=== PATIENT | male | born 1980 | race Caucasian/White ===

== ENCOUNTER 2020-01-17 13:48 | Observation (INO) | payer BC ==
[~2020-01-17] VITALS: Ht 190.5 cm; Wt 122.9 kg
[2020-01-17 14:55] LABS: BASOPHILS 0.2 % (0-2); HEMATOCRIT 48.1 % (42.0-54.0); HEMOGLOBIN 15.4 g/dL (13.5-17.5); IMMATURE GRANULOCYTES 0.3 % (0-5); LYMPHOCYTES 12.4 % (15-50); MCH 25.1 pg (26.0-34.0); MCV 78.5 fL (80.0-100.0); MEAN PLATELET VOLUME 9.3 fL (7.4-10.4); NEUTROPHILS 79.1 % (40-80); PLATELET COUNT 331 10x3/uL (130-400); RBC 6.13 10x6/uL (4.20-6.10); RDW 16.7 % (11.5-14.5); WBC 12.7 10x3/uL (4.8-10.8)
[2020-01-17 15:04] LABS: ANION GAP 8.8 mmol/L (8-16); CALCIUM 8.3 mg/dL (8.5-10.1); CARBON DIOXIDE 28.5 mmol/L (21.0-32.0); CREATININE - SERUM 1.5 mg/dL (0.6-1.3); POTASSIUM - SERUM 4.3 mmol/L (3.5-5.1)
[2020-01-17 15:11] LABS: ALBUMIN 2.8 g/dL (3.4-5.0); BILIRUBIN - TOTAL 0.45 mg/dL (0.2-1.3); PROTEIN - SERUM 6.2 g/dL (6.4-8.2)
[2020-01-17 18:03] VITALS: BP 130/72
--- NOTE | 2020-01-17 18:17 | NUR ---
RESTING IN BED, NO DISTRESS NOTED, C/O PAIN WHEN UP ON LEG, CONT TO MONITOR PAIN, PROVIDED WITH SUPPER TRAY, SL IN PLACE
[2020-01-17 18:24] VITALS: BP 162/105
[2020-01-17 19:00] LABS: APTT 27.8 SECONDS (22.8-39.4)
--- NOTE | 2020-01-17 19:00 | NUR ---
PATIENT ALERT AND ORIENTED. ASSESSMENT PERFORMED. EDUCATION PROVIDED IN REGARDS TO ORDERS FOR BED REST. INSTRUCTED PATIENT ON ORDERS FOR URINE SAMPLE. DENIES FURTHER NEEDS AT THIS TIME. CALL LIGHT CLOSE. CPOC.
[2020-01-17 19:01] LABS: D-DIMER-QUANTITATIVE 0.45 ug/mLFEU (0.20-0.54)
[2020-01-17 19:08] LABS: INR 0.93 (0.85-1.17); PROTIME 12.4 SECONDS (11.6-15.0)
[2020-01-17 19:17] LABS: CKMB 3.2 U/L (0.0-3.6); CREATINE KINASE 700 UL (21-232)
[2020-01-17 19:19] LABS: TROPONIN-I < 0.017 ng/mL (0.000-0.060)
--- NOTE | 2020-01-17 19:49 | NUR ---
PATIENT REQUESTING PAIN MEDICINE. ADMINISTERED PRN MORPHINE PER ORDER FOR PAIN RATINIG 12/27 TO THE RIGHT LOWER LEG. DENIES FURTHER NEEDS CPOC.
[2020-01-17 23:03] VITALS: BP 133/75
--- NOTE | 2020-01-17 23:55 | NUR ---
REQUESTING PRN MORPHINE FOR PAIN RATING OF 7/10. ADMINISTERED PER ORDER. TOELRATED WELL. DENIES FURTHER NEEDS. CPOC.
[2020-01-18 00:33] LABS: BILIRUBIN NEGATIVE (NEGATIVE); KETONE NEGATIVE (NEGATIVE); NITRITE NEGATIVE (NEGATIVE); UROBILINOGEN NORMAL (NORMAL)
[2020-01-18 00:46] LABS: UDS - AMPHET NEGATIVE QUAL (NEGATIVE); UDS - BARB NEGATIVE QUAL (NEGATIVE); UDS - BENZO NEGATIVE QUAL (NEGATIVE); UDS - COCAINE NEGATIVE QUAL (NEGATIVE); UDS - OPIATE POSITIVE QUAL (NEGATIVE); UDS - PCP NEGATIVE QUAL (NEGATIVE); UDS - THC POSITIVE QUAL (NEGATIVE)
[2020-01-18 01:12] LABS: CKMB 2.4 U/L (0.0-3.6); TROPONIN-I 0.027 ng/mL (0.000-0.060)
[2020-01-18 01:15] LABS: CREATINE KINASE 430 UL (21-232)
[2020-01-18 02:35] VITALS: BP 153/91
[2020-01-18 07:13] VITALS: BP 162/94
[2020-01-18 07:41] LABS: BASOPHILS 0.2 % (0-2); EOSINOPHILS 1.7 % (0-7); HEMATOCRIT 48.9 % (42.0-54.0); HEMOGLOBIN 15.5 g/dL (13.5-17.5); IMMATURE GRANULOCYTES 0.2 % (0-5); LYMPHOCYTES 13.7 % (15-50); MCH 24.8 pg (26.0-34.0); MCHC 31.7 g/dL (31.0-37.0); MCV 78.1 fL (80.0-100.0); MEAN PLATELET VOLUME 9.5 fL (7.4-10.4); MONOCYTES 6.2 % (2-11); PLATELET COUNT 307 10x3/uL (130-400); RBC 6.26 10x6/uL (4.20-6.10); RDW 16.9 % (11.5-14.5)
[2020-01-18 07:56] LABS: ALBUMIN 2.7 g/dL (3.4-5.0); ALKALINE PHOSPHATASE 54 U/L (30-120); ALT (SGPT) 30 U/L (10-68); BILIRUBIN - TOTAL 0.54 mg/dL (0.2-1.3); CALC OSMOLALITY 273 mosm/kg (275-300); CALCIUM 8.1 mg/dL (8.5-10.1); CARBON DIOXIDE 27.1 mmol/L (21.0-32.0); CHLORIDE - SERUM 106 mmol/L (98-107); CKMB 2.1 U/L (0.0-3.6); CREATINE KINASE 334 UL (21-232); CREATININE - SERUM 1.4 mg/dL (0.6-1.3); GLUCOSE 85 mg/dL (74-106); POTASSIUM - SERUM 4.9 mmol/L (3.5-5.1); PROTEIN - SERUM 5.9 g/dL (6.4-8.2); SODIUM 138 mmol/L (136-145); UREA NITROGEN 9 mg/dL (7-18); eGFR NON AFRICAN AMERICAN 60 mL/min (90-120)
[2020-01-18 07:57] LABS: TROPONIN-I < 0.017 ng/mL (0.000-0.060)
[2020-01-18 09:31] VITALS: BP 152/93
--- NOTE | 2020-01-18 09:50 | NUR ---
PT RESTING IN BED. AWAKE ALERT AND ORIENTED. RESP EVEN AND UNLABORED. REPORTS PAIN TO RIGHT LOWER EXTREMITY, 7/10 AT THIS TIME. SALINE LOC TO RIGHT FOREARM, SITE WITHOUT REDNESS OR EDEMA, EASILY FLUSHED. REDNESS NOTED TO RIGHT LOWER EXTREMITY NOTED. PULSES PALPABLE TO EXTREMITY. DENIES FURTHER NEEDS AT THIS TIME. CL WITHIN REACH. ENCOURAGED TO CALL WITH NEEDS. CONTINUE POC
[2020-01-18] MEDS ORDERED: CLEOCIN HCL300 MG PO (11:52)
[2020-01-18] MEDS ORDERED: ELIQUIS5 MG PO (11:52)
[2020-01-18] MEDS ORDERED: FLORAJEN3 CAPS460 MG PO (11:52)
[2020-01-18 12:34] VITALS: BP 144/86
[2020-01-18 16:30] VITALS: Ht 190.5 cm; Wt 122.9 kg
[2020-01-18 18:10] LABS: THYROID STIMULATING HORMONE 2.09 uIU/mL (0.36-3.74)
[2020-01-19 08:13] LABS: PSA - % FREE 21.4 % (()); PSA - FREE 0.15 ng/mL; PSA - TOTAL 0.7 ng/mL (0.0-4.0)
[2020-01-19 17:09] LABS: CEA 1.2 ng/mL (0.0-4.7)
--- NOTE | 2020-01-20 07:58 | EC ---
PATIENT:DARYL LAM DATE OF SERVICE: 01/17/20 SEX: M MEDICAL RECORD: [id number] DATE OF : 78 LOCATION:[facility] AGE OF PATIENT: 39 ADMISSION DATE: 01/17/20 REFERRING PHYSICIAN: INTERPRETING PHYSICIAN: LISSETH ALVARADO MD ECHOCARDIOGRAM REPORT ECHO CHARGES 4 ECHO COMPLETE Date: 01/18/20 CLINICAL DIAGNOSIS: DVT ECHOCARDIOGRAPHIC MEASUREMENTS (adult normal given) AC root (d.<3.7cm) 2.7 cm LV Septum d (<1.2 cm> 1.0 cm Valve Excursion 1.7 cm LV Septum (systole) 1.4 cm Left Atria (s.<4.0cm> 3.5 cm LVPW d(<1.2cm) 1.0 cm RV (d.<2.3cm) 2.7 cm LVPW (sytole) 1.1 cm LV diastole(<5.6CM) 6.3 cm MV E-F(>70mm/sec) cm LV systole 5.1 cm LVOT Diameter 1.9 cm MV exc.(>10mm) cm Est.ejection fraction (50-75%) % DOPPLER: LVIT cm/sec A 78 cm/sec E 57 cm/sec LA cm/sec RVSP 18.2 mmHg LVOT 88 cm/sec AOP1/2T m/s Asc. Ao 101 cm/sec RVOT 66 cm/sec RA cm/sec PA 68 cm/sec AV Gradient Peak 4.1 mmHg AV Mean 2.5 mmHg AV Area 2.3 cm MV Gradient Peak 3.0 mmHg MV Mean 2.0 mmHg MV Area cm COMMENTS: Customer Account Coordinator: Bronwyn [facility] Rehabilitation Assistant: 3 Dr. Spivey TAPE# PACS Pericardial Effusion N DATE OF SERVICE: 01/18/2020 Adequate 2D, color flow imaging, spectral Doppler, and M-Mode. No LVH. LV internal dimensions are normal. Wall motion is normal. EF is greater than 55%. Aortic valve is tricuspid. No evidence of stenosis by Doppler interrogation. Left atrium is normal. Mitral valve shows no prolapse. Trivial MR. Right-sided chamber is grossly normal. Trivial TR. TRANSINT:[id number] Voice Confirmation ID: [id number] DOCUMENT ID: [id number] ECHOCARDIOGRAM REPORT [id number] DARYL LAM LISSETH ALVARADO MD at 0758 CC: [id number] DICTATION DATE: 01/18/20 1335 [employer]RE SH[employer] MECHANIC: 01/19/20 0032 DIS IN 01/18/20 [id number] [place] [address]
== END 2020-01-18 16:57 | disposition home or self-care (01) ==
LOC: D.ER 13:48 → D.MS 16:00 → D.EDHOLD 16:00 → D.MS 17:00 → OBSVTIME 01-18 16:15 → D.MS 01-18 16:57
PROVIDERS: Family Medicine; Internal Medicine Hematology & Oncology; ADMIT Family Medicine; ATTEND Family Medicine
DX: I82.401 Acute embolism and thrombosis of unspecified deep veins of right lower extremity (principal); D72.829 Elevated white blood cell count, unspecified; N17.9 Acute kidney failure, unspecified